=== PATIENT | male | born 1990 | race Caucasian/White ===

== ENCOUNTER 2016-11-05 23:45 | Emergency (ER) | payer BC ==
[~2016-11-05] VITALS: Ht 182.9 cm; Wt 101.4 kg
[2016-11-06 01:22] VITALS: BP 139/71
== END 2016-11-06 01:23 | disposition left against medical advice (07) ==
LOC: EME → EDBD 23:45 → EME 23:45
DX: F10.129 Alcohol abuse with intoxication, unspecified (principal)
CPT/HCPCS: 99281; 99284